=== PATIENT | male | born 1930 | race Caucasian/White ===

== ENCOUNTER 2017-10-15 16:05 | Emergency (ER) | payer OTHER ==
[2017-10-15] MEDS ORDERED: TETANUS & DIPHTHERIA TOX,ADULT 0.5 ML VIAL ONE (16:57)
[2017-10-15] MEDS ORDERED: LIDOCAINE 1% MPF 5 ML VIAL ONE (16:57)
--- NOTE | 2017-10-15 16:57 | RAD REPORT ---
EXAM DESCRIPTION: RAD - Elbow Left 3 View - 10/15/2017 4:49 pm CLINICAL HISTORY: Left elbow pain status post trauma FINDINGS: Posterior soft tissue laceration is seen. No fracture or dislocation is noted
--- NOTE | 2017-10-15 17:39 | EDPHYS ---
Physician Documentation [facility] Name: Chuy Marquez Age: 87 yrs Sex: Male : 1930 Arrival Date: 10/15/2017 Time: 16:09 Bed 9 Private MD: Charan Holt T ED Physician Hank Roth HPI: 10/15 17:30 This 87 yrs old Male presents to ER via Ambulatory with complaints of Fall pm1 Injury, Elbow Injury. 17:30 Details of fall: The patient fell from an upright position, while walking. Onset: The pm1 symptoms/episode began/occurred just prior to arrival. Associated injuries: The patient sustained left elbow. The patient has not experienced similar symptoms in the past. 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 Patient walking and tripped over his own feet and landed on his left elbow and right forearm. Patient presenting with laceration to left elbow and contusion to right forearm. patient without any pain to right forearm.. No headache, head injury, or neck pain. Historical: - Allergies: 16:27 No Known Allergies; sv - Home Meds: 16:27 Aspirin Oral [Active]; doxazosin oral oral [Active]; sv - PMHx: 16:27 High Cholesterol; Hypertension; Kidney stones; sv 16:27 possible TIA; sv - PSHx: 16:27 right ear; Hernia repair; Appendectomy; Cholecystectomy; sv - Immunization history:: Adult Immunizations up to date. - Social history:: Smoking status: Patient/guardian denies using tobacco. - Ebola Screening: : No symptoms or risks identified at this time. ROS: 17:30 Constitutional: Negative for fever, chills, and weight loss, Eyes: Negative for injury, pm1 pain, redness, and discharge, ENT: Negative for injury, pain, and discharge, Neck: Negative for injury, pain, and swelling, Cardiovascular: Negative for chest pain, palpitations, and edema, Respiratory: Negative for shortness of breath, cough, wheezing, and pleuritic chest pain, Abdomen/GI: Negative for abdominal pain, nausea, vomiting, diarrhea, and constipation, Back: Negative for injury and pain, : Negative for injury, bleeding, discharge, and swelling. 17:30 Neuro: Negative for headache, weakness, numbness, tingling, and seizure. 17:30 MS/extremity: Positive for laceration, of the left elbow, contusion to palmar aspect of right forearm. No painful, Negative for decreased range of motion, deformity. 17:30 Skin: Positive for laceration(s), of the left elbow. Exam: 17:30 Constitutional: This is a well developed, well nourished patient who is awake, alert, pm1 and in no acute distress. Head/Face: Normocephalic, atraumatic. Eyes: Pupils equal round and reactive to light, extra-ocular motions intact. Lids and lashes normal. Conjunctiva and sclera are non-icteric and not injected. Cornea within normal limits. Periorbital areas with no swelling, redness, or edema. ENT: Nares patent. No nasal discharge, no septal abnormalities noted. Tympanic membranes are normal and external auditory canals are clear. Oropharynx with no redness, swelling, or masses, exudates, or evidence of obstruction, uvula midline. Mucous membranes moist. Neck: Trachea midline, no thyromegaly or masses palpated, and no cervical lymphadenopathy. Supple, full range of motion without nuchal rigidity, or vertebral point tenderness. No Meningismus. Chest/axilla: Normal chest wall appearance and motion. Nontender with no deformity. No lesions are appreciated. Cardiovascular: Regular rate and rhythm with a normal S1 and S2. No gallops, murmurs, or rubs. Normal PMI, no JVD. No pulse deficits. Respiratory: Lungs have equal breath sounds bilaterally, clear to auscultation and percussion. No rales, rhonchi or wheezes noted. No increased work of breathing, no retractions or nasal flaring. Abdomen/GI: Soft, non-tender, with normal bowel sounds. No distension or tympany. No guarding or rebound. No evidence of tenderness throughout. Back: No spinal tenderness. No costovertebral tenderness. Full range of motion. 17:30 Skin: Appearance: normal except for affected area, injury, contusion(s), that are superficial, of the palmar aspect of right forearm, Non tender, laceration(s), the wound is approximately 3 cm(s), with a depth of 1 cm(s), of the left elbow. Vital Signs: 16:27 BP 165 / 87; Pulse 68; Resp 18; Temp 98.1; Pulse Ox 97% ; Weight 85.28 kg; Height 5 ft. sv 9 in. (175.26 cm); Pain 0/10; 17:54 BP 180 / 79; Pulse 60; Resp 18; Pulse Ox 97% on R/A; mb3 16:27 Body Mass Index 27.76 (85.28 kg, 175.26 cm) sv Laceration: 17:36 Wound Repair of 3cm ( 1.2in ) subcutaneous laceration to left elbow. Linear shaped.. pm1 Distal neuro/vascular/tendon intact. Anesthesia: Local anesthetic administered with 3 mls of 1% lidocaine. Wound prep: Extensive cleansing with betadine by me, Wound irrigation with saline by me, Wound explored extensively, Copious irrigation. Skin closed with 5 4-0 Prolene using simple sutures and sterile technique. Dressed with 4x4's, Kerlix. Patient tolerated well. MDM: 16:31 Patient medically screened. pm1 17:36 Data reviewed: vital signs. Data interpreted: Pulse oximetry: on room air is 97 %. pm1 Interpretation: normal. Counseling: I had a detailed discussion with the patient and/or guardian regarding: the historical points, exam findings, and any diagnostic results supporting the discharge/admit diagnosis, radiology results, the need for outpatient follow up, to return to the emergency department if symptoms worsen or persist or if there are any questions or concerns that arise at home. 10/15 16:38 Order name: Elbow Left 3 View XRAY; Complete Time: 17:12 pm1 12 16:38 Order name: Prolene, Sutures pm1 10/15 16:38 Order name: Dressing - Wound; Complete Time: 17:02 pm1 12 16:38 Order name: Gloves, Sterile; Complete Time: 17:02 pm1 12 16:38 Order name: Setup Suture Tray; Complete Time: 17:02 pm1 Administered Medications: 17:01 Drug: Tetanus-Diphtheria Toxoid Adult 0.5 ml {[employer]: [employer]. Exp: mb3 01/03/2020. Lot #: [id number]. } Route: IM; Site: right deltoid; 17:52 Follow up: Response: No adverse reaction mb3 17:22 Drug: Lidocaine (1 %) 5 ml Volume: 5 ml; Route: Infiltration; mb3 17:52 Follow up: Response: No adverse reaction mb3 Disposition: 10/15/17 17:39 Discharged to Home. Impression: Laceration without foreign body of left elbow, Contusion of right forearm. - Condition is Stable. - Discharge Instructions: Contusion, Laceration Care, Adult. - Prescriptions for Bactrim DS 800- 160 mg Oral Tablet - take 1 tablet by ORAL route every 12 hours for 10 days; 20 tablet. - Medication Reconciliation Form, Thank You Letter, Antibiotic Education form. - Follow up: Emergency Department; When: As needed; Reason: Worsening of condition. Follow up: Charan Holt MD; When: 10 - 14 days; Reason: Recheck today's complaints, Continuance of care, Re-evaluation by your physician. - Problem is new. - Symptoms have improved. Addendum: 10/17/2017 07:01 Co-signature as Attending Physician, Hank Roth MD. r n Signatures: Dispatcher [employer] Mirtha Avila RN Hank Quinones MD MD rn Marinas, Patrick, ACID CHANGER ACID CHANGER pm1 Rod Richardson RN RN mb3 Corrections: (The following items were deleted from the chart) 10/15 17:40 17:39 10/15/2017 17:39 Discharged to Home. Impression: Laceration without foreign body pm1 of left elbow. Condition is Stable. Forms are Medication Reconciliation Form, Thank You Letter, Antibiotic Education, Prescription Opioid Use. Follow up: Emergency Department; When: As needed; Reason: Worsening of condition. Follow up: Charan Holt; When: 10 - 14 days; Reason: Recheck today's complaints, Continuance of care, Re-evaluation by your physician. Problem is new. Symptoms have improved. pm1 17:56 17:40 10/15/2017 17:39 Discharged to Home. Impression: Laceration without foreign body mb3 of left elbow; Contusion of right forearm. Condition is Stable. Discharge Instructions: Contusion, Laceration Care, Adult. Prescriptions for Bactrim DS 800-160 mg Oral Tablet - take 1 tablet by ORAL route every 12 hours for 10 days; 20 tablet. and Forms are Medication Reconciliation Form, Thank You Letter, Antibiotic Education. Follow up: Emergency Department; When: As needed; Reason: Worsening of condition. Follow up: Charan Holt; When: 10 - 14 days; Reason: Recheck today's complaints, Continuance of care, Re-evaluation by your physician. Problem is new. Symptoms have improved. pm1
--- NOTE | 2017-10-15 17:39 | ER ---
Nurse's Notes [facility] Name: Chuy Marquez Age: 87 yrs Sex: Male : 1930 Arrival Date: 10/15/2017 Time: 16:09 Bed 9 Private MD: Charan Holt T Diagnosis: Laceration without foreign body of left elbow;Contusion of right forearm Presentation: 10/15 16:23 Presenting complaint: Patient states: tripped and fell today at 1330. Laceration to the sv left elbow, abrasion to the right forearm. Care prior to arrival: None. Mechanism of Injury: Fall from standing position. 16:23 Acuity: JUAN F 3 sv 16:23 Method Of Arrival: Ambulatory sv 16:41 Transition of care: patient was not received from another setting of care. Onset of mb3 symptoms was October 15, 2017 at 15:30. Risk Assessment: Do you want to hurt yourself or someone else? Patient reports no desire to harm self or others. Initial Sepsis Screen: Does the patient meet any 2 criteria? No. Patient's initial sepsis screen is negative. Does the patient have a suspected source of infection? No. Patient's initial sepsis screen is negative. Trauma Activation: Not Applicable Physician: ED Physician; Name: ; Notified At: ; Arrived At: Physician: General Surgeon; Name: ; Notified At: ; Arrived At: Physician: Radiology; Name: ; Notified At: ; Arrived At: Physician: Respiratory; Name: ; Notified At: ; Arrived At: Physician: Lab; Name: ; Notified At: ; Arrived At: Historical: - Allergies: 16:27 No Known Allergies; sv - Home Meds: 16:27 Aspirin Oral [Active]; doxazosin oral oral [Active]; sv - PMHx: 16:27 High Cholesterol; Hypertension; Kidney stones; sv 16:27 possible TIA; sv - PSHx: 16:27 right ear; Hernia repair; Appendectomy; Cholecystectomy; sv - Immunization history:: Adult Immunizations up to date. - Social history:: Smoking status: Patient/guardian denies using tobacco. - Ebola Screening: : No symptoms or risks identified at this time. Screenin:33 Abuse screen: Denies threats or abuse. Nutritional screening: No deficits noted. mb3 Tuberculosis screening: No symptoms or risk factors identified. Fall Risk Fall in past 12 months (25 points). Secondary diagnosis (15 points) No IV (0 pts). Ambulatory Aid- None/Bed Rest/Nurse Assist (0 pts). Gait- Normal/Bed Rest/Wheelchair (0 pts) Mental Status- Oriented to own ability (0 pts). Total Quinn Fall Scale indicates High Risk Score (45 or more points). Fall prevention measures have been instituted. Placed Close to Nursing Station Frequent Obs/Assessments Occuring As available patient and family educated on Fall Prevention Program and Strategies. Assessment: 16:39 General: Appears in no apparent distress. comfortable, Behavior is calm, cooperative, mb3 appropriate for age. Pain: Complains of pain in left elbow and right forearm. Neuro: Level of Consciousness is awake, alert, obeys commands, Oriented to person, place, time, situation, Appropriate for age. Cardiovascular: No deficits noted. Respiratory: No deficits noted. GI: No deficits noted. No signs and/or symptoms were reported involving the gastrointestinal system. : No deficits noted. No signs and/or symptoms were reported regarding the genitourinary system. Injury Description: Laceration sustained to left elbow is 2.6 to 7.5 cm long, was sustained 1-2 hours ago. Vital Signs: 16:27 BP 165 / 87; Pulse 68; Resp 18; Temp 98.1; Pulse Ox 97% ; Weight 85.28 kg; Height 5 ft. sv 9 in. (175.26 cm); Pain 0/10; 17:54 BP 180 / 79; Pulse 60; Resp 18; Pulse Ox 97% on R/A; mb3 16:27 Body Mass Index 27.76 (85.28 kg, 175.26 cm) sv ED Course: 16:09 Patient arrived in ED. mr 16:10 Charan Holt MD is Private Physician. mr 16:25 Triage completed. sv 16:27 Arm band placed on right wrist. sv 16:30 Rod Richardson, DAVE is Primary Nurse. mb3 16:30 Inder Holden NP is PHCP. pm1 16:30 Hank Roth MD is Attending Physician. pm1 16:41 Patient has correct armband on for positive identification. mb3 16:48 X-ray completed. Portable x-ray completed in exam room. Patient tolerated procedure jr1 well. 16:49 Elbow Left 3 View XRAY In Process Unspecified. EDMS 17:37 Charan Holt MD is Referral Physician. pm1 17:53 Assist provider with laceration repair on back of left arm that was between 2.6 to 7.5 mb3 cm using sutures. Set up tray. Performed by Inder Holden WOOD FINISHER Dressed with Adaptic, Kerlix, Neosporin, Patient tolerated well. Patient did not have IV access during this emergency room visit. Administered Medications: 17:01 Drug: Tetanus-Diphtheria Toxoid Adult 0.5 ml {[employer]: [email or web address]. Exp: mb3 01/03/2020. Lot #: [id number]. } Route: IM; Site: right deltoid; 17:52 Follow up: Response: No adverse reaction mb3 17:22 Drug: Lidocaine (1 %) 5 ml Volume: 5 ml; Route: Infiltration; mb3 17:52 Follow up: Response: No adverse reaction mb3 Outcome: 17:39 Discharge ordered by MD. pm1 17:54 Discharged to home ambulatory, with family. mb3 17:54 Condition: stable 17:54 Discharge instructions given to patient, Instructed on discharge instructions, follow up and referral plans. medication usage, Demonstrated understanding of instructions, follow-up care, medications, wound care, Prescriptions given X 1. 17:56 Patient left the ED. mb3 Signatures: Dispatcher [employer] Mirtha Avila, Lena Holley RN Aravind, Amie jr1 Inder Holden, YARIEL WOOD FINISHER pm1 Rod Richardson RN RN mb3
== END 2017-10-15 17:56 | disposition home or self-care (01) ==
LOC: ER 16:05
PROC: 0HQEXZZ Repair Left Lower Arm Skin, External Approach (ICD-10-PCS; principal; 2017-10-15)
DX: S51.012A Laceration without foreign body of left elbow, initial encounter (principal); W01.10XA Fall on same level from slipping, tripping and stumbling with subsequent striking against unspecified object, initial encounter; Y93.89 Activity, other specified; Y92.9 Unspecified place or not applicable; Y99.9 Unspecified external cause status
CPT/HCPCS: 90714; 99284